=== PATIENT | female | born 1955 | race Caucasian/White ===

== ENCOUNTER 2020-12-31 14:42 | Inpatient (IN) | payer BC, OTHER ==
[2020-12-31] MEDS ORDERED: ACETAMINOPHEN 500 MG TABLET (FP) PO ONE (15:30)
[2020-12-31] MEDS ORDERED: ACETAMINOPHEN 500 MG TABLET (FP) ONE (15:48)
[2020-12-31 15:55] LABS: EOS % 1.9 % (0-4.5); HEMATOCRIT 39.2 % (32.4-45.2); HEMOGLOBIN 13.6 GM/dL (10.7-15.3); LYMPH % 30.6 % (8-40); MCH 32.9 pg (25.7-33.7); MCHC 34.8 g/dl (32.0-36.0); MEAN CELL VOLUME 94.4 fl (80-96); MONO % 7.5 % (3.8-10.2); PLATELET COUNT 249 K/MM3 (134-434); RBC 4.15 M/mm3 (3.60-5.2); RDW 12.9 % (11.6-15.6); WHITE BLOOD COUNT 6.1 K/mm3 (4.0-10.0)
[2020-12-31 16:14] LABS: INR 0.96 (0.83-1.09); PROTHROMBIN TIME (PATIENT) 11.6 SEC (9.7-13.0)
[2020-12-31 16:17] LABS: ACTIVATED PTT 24.9 SECONDS (25.2-36.5)
[2020-12-31 16:18] LABS: CHLORIDE 107 mmol/L (98-107); SODIUM 142 mmol/L (136-145)
[2020-12-31 16:20] LABS: ALBUMIN 3.5 g/dl (3.4-5.0); ANION GAP 6 MMOL/L (8-16); BLOOD UREA NITROGEN 8.6 mg/dL (7-18); CALCIUM 8.8 mg/dL (8.5-10.1); CO2 29 mmol/L (21-32); GLUCOSE,RANDOM 118 mg/dL (74-106)
[2020-12-31 16:24] LABS: CREATININE 0.8 mg/dL (0.55-1.3); SGOT/AST 29 U/L (15-37); SGPT/ALT 36 U/L (13-61)
[2020-12-31 16:26] LABS: BILIRUBIN,TOTAL 0.3 mg/dL (0.2-1); TOT PROT 6.9 g/dl (6.4-8.2)
[2020-12-31 16:27] LABS: ALK PHOS 111 U/L (45-117)
[2020-12-31] MEDS ORDERED: morphine CARPU-JECT 2 MG/1 ML DISP.SYRIN IVPUSH ONE (16:28)
[2020-12-31 16:29] LABS: N-TERMINAL BNP 227.9 pg/ml (5-125)
[2020-12-31] MEDS ORDERED: MORPHINE SULFATE 2 MG/ML VIAL ONE (16:41)
[2020-12-31] MEDS ORDERED: POTASSIUM CHLORIDE ORAL LIQUID 20 MEQ/15 ML PO ONE (17:15)
[2020-12-31] MEDS ORDERED: POTASSIUM CHLORIDE ORAL LIQUID 20 MEQ/15 ML ONE (17:31)
[2020-12-31] MEDS ORDERED: MAGNESIUM SULF 50% (8.12 MEQ/2 ML-1 GM VIAL) IVPB ONE (20:11)
[2020-12-31] MEDS ORDERED: MAGNESIUM SULFATE IN WATER 2 GM/50 ML IVPB IVPB ONE (20:21)
[2020-12-31] MEDS ORDERED: LIDOCAINE 5% TOPICAL PATCH TP ONE (21:29)
[2020-12-31] MEDS ORDERED: SERTRALINE HCL 50 MG TABLET (FP) ONE (22:17)
[2020-12-31] MEDS ORDERED: LIDOCAINE 5% TOPICAL PATCH ONE (22:18)
[2020-12-31] MEDS ORDERED: ENOXAPARIN NA (PORCINE) 40 MG/0.4 ML DISP.SYRIN SQ ONE (22:18)
[2020-12-31] MEDS: SERTRALINE HCL 50 MG TABLET (FP) PO SCH (22:24)
[2020-12-31 23:08] LABS: URINE APPEARANCE CLEAR; URINE BILIRUBIN NEGATIVE (NEGATIVE); URINE COLOR YELLOW; URINE GLUCOSE (UA) NEGATIVE (NEGATIVE); URINE KETONE NEGATIVE (NEGATIVE); URINE LEUK ESTERASE NEGATIVE (NEGATIVE); URINE NITRITE NEGATIVE (NEGATIVE); URINE PROTEIN NEGATIVE (NEGATIVE); URINE UROBILINOGEN 0.2 mg/dL (0.2-1.0)
[2021-01-01] MEDS ORDERED: traMADol HCL 50 MG TABLET PO PRN (03:14)
[2021-01-01] MEDS ORDERED: traMADol HCL 50 MG TABLET PO ONE (03:14)
[2021-01-01] MEDS: ACETAMINOPHEN 325 MG TABLET (FP) PO PRN ×3 (03:31→22:00)
[2021-01-01 06:38] LABS: BASO % 0.5 % (0-2.0); EOS % 2.5 % (0-4.5); HEMATOCRIT 39.6 % (32.4-45.2); HEMOGLOBIN 13.5 GM/dL (10.7-15.3); LYMPH % 37.5 % (8-40); MCH 32.2 pg (25.7-33.7); MCHC 34.1 g/dl (32.0-36.0); MEAN CELL VOLUME 94.6 fl (80-96); NEUT % 51.5 % (42.8-82.8); PLATELET COUNT 220 K/MM3 (134-434); RBC 4.18 M/mm3 (3.60-5.2)
[2021-01-01 07:19] LABS: CHLORIDE 109 mmol/L (98-107); SODIUM 141 mmol/L (136-145)
[2021-01-01 07:20] LABS: ALBUMIN 3.4 g/dl (3.4-5.0); ANION GAP 7 MMOL/L (8-16); BLOOD UREA NITROGEN 7.7 mg/dL (7-18); CALCIUM 8.4 mg/dL (8.5-10.1); CO2 26 mmol/L (21-32); GLUCOSE,RANDOM 90 mg/dL (74-106)
[2021-01-01 07:21] LABS: MAGNESIUM 2.1 mg/dL (1.8-2.4)
[2021-01-01 07:22] LABS: SGOT/AST 31 U/L (15-37); SGPT/ALT 34 U/L (13-61)
[2021-01-01 07:23] LABS: CREATININE 0.6 mg/dL (0.55-1.3)
[2021-01-01 07:24] LABS: BILIRUBIN,TOTAL 0.3 mg/dL (0.2-1); PHOSPHOROUS 3.1 mg/dL (2.5-4.9); TOT PROT 6.6 g/dl (6.4-8.2)
[2021-01-01 07:25] LABS: ALK PHOS 101 U/L (45-117)
[2021-01-01] MEDS: LEVOTHYROXINE NA 75 MCG TABLET (FP) PO SCH (07:59)
[2021-01-01] MEDS: ATENOLOL 50 MG TABLET (FP) PO SCH ×2 (07:59→09:34)
[2021-01-01 08:15] VITALS: BMI 29.2
[2021-01-01] MEDS ORDERED: LIDOCAINE PATCH REMOVAL MC ONE (09:30)
[2021-01-01] MEDS: SERTRALINE HCL 50 MG TABLET (FP) PO SCH (09:34)
[2021-01-01] MEDS: LOSARTAN POTASSIUM 25 MG TABLET PO SCH (09:47)
[2021-01-01] MEDS: ENOXAPARIN NA (PORCINE) 40 MG/0.4 ML DISP.SYRIN SQ SCH (09:48)
[2021-01-01] MEDS ORDERED: POTASSIUM CHLORIDE TABS 20 MEQ TABLET.ER (FP) PO ONE (13:15)
[2021-01-02] MEDS: ACETAMINOPHEN 325 MG TABLET (FP) PO PRN (06:14)
[2021-01-02] MEDS: LEVOTHYROXINE NA 75 MCG TABLET (FP) PO SCH (06:24)
[2021-01-02] MEDS: LOSARTAN POTASSIUM 25 MG TABLET PO SCH (09:36)
[2021-01-02] MEDS: ATENOLOL 50 MG TABLET (FP) PO SCH (09:36)
[2021-01-02] MEDS: SERTRALINE HCL 50 MG TABLET (FP) PO SCH (09:37)
[2021-01-02] MEDS: ENOXAPARIN NA (PORCINE) 40 MG/0.4 ML DISP.SYRIN SQ SCH (10:02)
[2021-01-02] MEDS ORDERED: REGADENOSON 0.4 MG/5 ML PRE-FILLED SYRINGE IVPUSH ONE ×2 (10:11→10:45)
[2021-01-02] MEDS ORDERED: POTASSIUM CHLORIDE TABS 20 MEQ TABLET.ER (FP) PO ONE (13:39)
[2021-01-02 16:36] VITALS: BP 164/79; PULSE 68; TEMP 98
== END 2021-01-02 18:48 | disposition home or self-care (01) | DRG 313 ==
LOC: JER 14:42 → JERBED 19:00 → OBSVTOIN 21:23 → FM/S 01-01 06:49
PROVIDERS: ADMIT Student in an Organized Health Care Education/Training Program; ATTEND Nurse Practitioner Acute Care
DX: R07.89 Other chest pain (principal); I10 Essential (primary) hypertension; E78.5 Hyperlipidemia, unspecified; E03.9 Hypothyroidism, unspecified; Z85.3 Personal history of malignant neoplasm of breast; E87.6 Hypokalemia; F32.9 Major depressive disorder, single episode, unspecified; R06.02 Shortness of breath; G47.33 Obstructive sleep apnea (adult) (pediatric); K21.9 Gastro-esophageal reflux disease without esophagitis
CPT/HCPCS: 36415; 71046-TC-FY; 71101-TC-LT-FY; 71250-TC; 78452-TC; 80053; 81003; 83036; 83735; 83880; 84100; 84443; 84484; 85025; 85610; 85730; 93005; 93010; 93017; 93306-TC; 93970-TC; 97116-GP; 97162-GP; 99285-25; A9502; C9803; G0378; J2785; U0003; U0005

== ENCOUNTER 2024-01-22 04:07 | Day surgery (SDC) | payer BC ==
[2024-01-16 11:07] VITALS: BMI 30.4
[2024-01-22 12:00] VITALS: RESP 18; TEMP 97.4
[2024-01-22 13:03] VITALS: BP 155/73; PULSE 60
== END 2024-01-22 13:01 | disposition home or self-care (01) ==
LOC: JASU-ENDO 04:07
PROVIDERS: ATTEND Internal Medicine Gastroenterology
PROC: 0DB68ZX Excision of Stomach, Via Natural or Artificial Opening Endoscopic, Diagnostic (ICD-10-PCS; 2024-01-22)
PROC: 0DB78ZX Excision of Stomach, Pylorus, Via Natural or Artificial Opening Endoscopic, Diagnostic (ICD-10-PCS; 2024-01-22)
PROC: 0DJD8ZZ Inspection of Lower Intestinal Tract, Via Natural or Artificial Opening Endoscopic (ICD-10-PCS; principal; 2024-01-22 11:00)
DX: Z12.11 Encounter for screening for malignant neoplasm of colon (principal); R12 Heartburn; I10 Essential (primary) hypertension
CPT/HCPCS: 43239; G0121; 88305-TC; 88342-TC